=== PATIENT | female | born 1935 | race African-American/Black ===

== ENCOUNTER 2019-08-01 19:32 | Emergency (ER) | payer MEDICARE, MEDICAID ==
[~2019-08-01] VITALS: Ht 162.6 cm; Wt 81.6 kg
[2019-08-01] MEDS ORDERED: Morphine Sulfate 4mg/ml Inj (IV USE ONLY) IVP ONE (20:15)
[2019-08-01] MEDS ORDERED: Omnipaue 350mg/ml 100ml vial INJ PRN ×2 (20:15)
[2019-08-01] MEDS ORDERED: Ketorolac 30mg Inj IV ONE (20:15)
[2019-08-01 20:30] VITALS: BP 183/86
[2019-08-01] MEDS ORDERED: COUMADIN7.5 MG ORAL (20:33)
[2019-08-01] MEDS ORDERED: METOPROLOL SUCC25 MG ORAL (20:33)
[2019-08-01 20:56] LABS: BASOPHILS % (AUTO) 0.5 % (0.0-2.0); EOSINOPHILS % (AUTO) 1.9 % (0.0-3.0); HEMATOCRIT 38.7 % (37.0-47.0); LYMPHOCYTES % (AUTO) 40.4 % (20.0-45.0); MEAN CORPUSCULAR VOLUME 92 FL (80-99); MONOCYTES % (AUTO) 6.4 % (1.0-10.0); NEUTROPHILS % (AUTO) 50.8 % (45.0-75.0); PLATELET COUNT 181 K/UL (150-450); RED BLOOD COUNT 4.19 M/UL (4.20-5.40); WHITE BLOOD COUNT 9.9 K/UL (4.8-10.8)
--- NOTE | 2019-08-01 20:56 | NUR ---
ED Nurse Note: pt presents to ED c/o L arm and shoulder px. pt had a fall two weeks ago and her L arm is currently in a cast but she states that the pain has not improved and now radiates to her shoulder. pt denies any decreased sensation or numbness to the casted extremity. cap refill is <3 seconds. pt denies any urinary symptoms or difficulty breathing. mikeer is at bedside.
[2019-08-01 21:09] LABS: ANION GAP 4 mmol/L (5-15); BLOOD UREA NITROGEN 17 mg/dL (7-18); CARBON DIOXIDE 33 MMOL/L (21-32); CHLORIDE 107 MMOL/L (98-107); CREATININE 1.2 MG/DL (0.55-1.30); POTASSIUM 3.8 MMOL/L (3.5-5.1); SODIUM 144 MMOL/L (136-145)
[2019-08-01] MEDS ORDERED: ATORVASTATIN CA40 MG ORAL (21:12)
[2019-08-01] MEDS ORDERED: ASPIR 8181 MG ORAL (21:12)
[2019-08-01] MEDS ORDERED: LEVOTHYROXINE75 MCG ORAL (21:12)
[2019-08-01] MEDS ORDERED: FUROSEMIDE40 MG ORAL (21:12)
[2019-08-01 21:14] LABS: ALANINE AMINOTRANSFERASE 31 U/L (12-78); ALBUMIN 3.6 G/DL (3.4-5.0); ALBUMIN/GLOBULIN RATIO 0.9 (1.0-2.7); ALKALINE PHOSPHATASE 110 U/L (46-116); ASPARTATE AMINO TRANSFERASE 23 U/L (15-37); BILIRUBIN,TOTAL 0.4 MG/DL (0.2-1.0)
--- NOTE | 2019-08-01 21:57 | Emergency Room Report ---
History of Present Illness General Chief Complaint: Pain Source: Patient, EMS (Aidan Cohn MD) Present Illness HPI 83-year-old female history of left broken wrist, hypertension, diabetes presents with left shoulder pain, that has been ongoing since she has been wearing a cast for 2 and half weeks, aggravated with movement alleviated with rest severity is moderate, intermittent, described as achy, patient also reports epigastric pain states it hurts every now and then has been ongoing for about a day, no aggravating alleviating factors no diarrhea no dysuria no fevers no chills no no dyspnea on exertion does not radiate to the back patient also wants that evaluated. (Aidan Cohn MD) Allergies: Coded Allergies: No Known Allergies (Unverified , 08/01/19) Patient History Past Medical History: see triage record Reviewed Nursing Documentation: PMH: Agreed; PSxH: Agreed (Aidan Cohn MD) Nursing Documentation-PMH Hx Hypertension: Yes Hx Diabetes: Yes (Aidan Cohn MD) Review of Systems All Other Systems: negative except mentioned in HPI (Aidan Cohn MD) Physical Exam Vital Signs Date Time Temp Pulse Resp B/P (MAP) Pulse Ox O2 Delivery O2 Flow Rate FiO2 08/01/19 19:29 99.1 89 18 183/86 (118) 100 Room Air Sp02 EP Interpretation: reviewed, normal General Appearance: well appearing, no apparent distress, alert Head: normocephalic, atraumatic Eyes: bilateral eye PERRL, bilateral eye EOMI ENT: uvula midline, moist mucus membranes Neck: supple, thyroid normal, supple/symm/no masses Respiratory: lungs clear, no respiratory distress, no retraction, no accessory muscle use Cardiovascular #1: normal peripheral pulses, regular rate, rhythm, no edema, no gallop, no murmur Gastrointestinal: non tender, soft, no guarding, no rebound Musculoskeletal: normal inspection, other - Left upper extremity: Cast present , left shoulder tender to palpation, compartments are soft, cap refill less than 3 seconds Neurologic: alert, oriented x3 Psychiatric: mood/affect normal Skin: no rash, warm/dry (Aidan Cohn MD) Procedures Critical Care Time Critical Care Time Given the critical condition in which the patient arrived, the patient was immediately assessed by myself and the nurse, and cardiac monitoring initiated due to the potential for rapid decompensation of the patient's clinical condition. During the course of the patient's stay, I spent a considerable amount of time at the bedside performing serial re-evaluations of the patient's hemodynamic and clinical status because of the recognized potential threat to life or limb in this condition. I then had a chance to review not only all of the available current laboratory and radiographic studies obtained today, but I also reviewed old records available to me at the time. Additionally, any ancillary information available including foam[employer] mixer records were reviewed. Sequential vital signs were obtained. Critical Care time of 75 minutes was performed exclusive of billable procedures. (Aidan Cohn MD) Medical Decision Making Diagnostic Impression: Primary Impression: Left shoulder strain Qualified Codes: S46.912A - Strain of unspecified muscle, fascia and tendon at shoulder and upper arm level, left arm, initial encounter Additional Impressions: Abdominal pain Qualified Codes: R10.13 - Epigastric pain Dissecting aneurysm of thoracic aorta, Franki type B Thoracic aortic aneurysm Qualified Codes: I71.2 - Thoracic aortic aneurysm, without rupture ER Course 83-year-old female presents with vague abdominal pain, patient with a history of aneurysm, possible dissection CT shows type b aortic dissection as well as thoracic aneurysm Patient with an elevated blood pressure, pain control with morphine Patient blood pressure improved from 180s to 120s, no acute intervention with hydralazine and labetalol needed at this point [place] called 11:10pm they are determining whether they will proceed with intervention with the patient Will attempt strict bp control. [place] doctor speaking with vascular will determine whether patient goes to [facility] for further management Laboratory Tests Test 08/01/19 20:47 08/01/19 21:52 White Blood Count 9.9 K/UL (4.8-10.8) Red Blood Count 4.19 M/UL (4.20-5.40) L Hemoglobin 14.0 G/DL (12.0-16.0) Hematocrit 38.7 % (37.0-47.0) Mean Corpuscular Volume 92 FL (80-99) Mean Corpuscular Hemoglobin 33.4 PG (27.0-31.0) H Mean Corpuscular Hemoglobin Concent 36.1 G/DL (32.0-36.0) H Red Cell Distribution Width 11.0 % (11.6-14.8) L Platelet Count 181 K/UL (150-450) Mean Platelet Volume 7.8 FL (6.5-10.1) Neutrophils (%) (Auto) 50.8 % (45.0-75.0) Lymphocytes (%) (Auto) 40.4 % (20.0-45.0) Monocytes (%) (Auto) 6.4 % (1.0-10.0) Eosinophils (%) (Auto) 1.9 % (0.0-3.0) Basophils (%) (Auto) 0.5 % (0.0-2.0) Prothrombin Time 10.7 SEC (9.30-11.50) Prothrombin Time INR 1.0 (0.9-1.1) PTT 23 SEC (23-33) Sodium Level 144 MMOL/L (136-145) Potassium Level 3.8 MMOL/L (3.5-5.1) Chloride Level 107 MMOL/L (98-107) Carbon Dioxide Level 33 MMOL/L (21-32) H Anion Gap 4 mmol/L (5-15) L Blood Urea Nitrogen 17 mg/dL (7-18) Creatinine 1.2 MG/DL (0.55-1.30) Estimate Glomerular Filtration Rate mL/min (>60) Glucose Level 116 MG/DL (74-106) H Calcium Level 9.0 MG/DL (8.5-10.1) Total Bilirubin 0.4 MG/DL (0.2-1.0) Aspartate Amino Transferase (AST) 23 U/L (15-37) Alanine Aminotransferase (ALT) 31 U/L (12-78) Alkaline Phosphatase 110 U/L (46-116) Troponin I 0.023 ng/mL (0.000-0.056) Total Protein 7.6 G/DL (6.4-8.2) Albumin 3.6 G/DL (3.4-5.0) Globulin 4.0 g/dL Albumin/Globulin Ratio 0.9 (1.0-2.7) L Lipase 215 U/L (73-393) Urine Color Pale yellow Urine Appearance Clear Urine pH 7 (4.5-8.0) Urine Specific [place] 1.005 (1.005-1.035) Urine Protein Negative (NEGATIVE) Urine Glucose (UA) Negative (NEGATIVE) Urine Ketones Negative (NEGATIVE) Urine Blood Negative (NEGATIVE) Urine Nitrite Negative (NEGATIVE) Urine Bilirubin Negative (NEGATIVE) Urine Urobilinogen Normal MG/DL (0.0-1.0) Urine Leukocyte Esterase Negative (NEGATIVE) (Aidan Cohn MD) ER Course Please refer to the initial note for the exam and findings and work-up Patient at this time was pending acceptance and transfer to [facility] I did speak to the transferring physician Who reports that after review of the CT imaging from their facility in February and the 1 that we have it appears that there is some consistency And vascular specialty feels that this is likely chronic in nature Patient remains hemodynamically stable And set for transfer for further evaluation (Javon Arechiga DO) EKG Diagnostic Results EKG Time: 20:25 EP Interpretation: NSR, rate 83, QTc 415, no acute ST elevations, normal axis (Aidan Cohn MD) Chest X-Ray Diagnostic Results Chest X-Ray Diagnostic Results : Chest X-Ray Ordered: Yes # of Views/Limited/Complete: 1 View Indication: Other - epigastric pain Interpretation: other - Wide mediastinum Impression: Other - Widened mediastinum Electronically Signed by: Aidan Cohn MD (Aidan Cohn MD) Other X-Ray Diagnostic Results Other X-Ray Diagnostic Results : X-Ray ordered: left shoulder # of Views/Limited Vs Complete: 2 View Indication: Pain EP Interpretation: Yes Interpretation: no fractures Impression: No acute disease Electronically Signed by: Aidan Cohn MD (Aidan Cohn MD) CT/MRI/US Diagnostic Results CT/MRI/US Diagnostic Results : Impression Procedure: CTA Chest Abd/Pel wo/w Cont CT CHEST W/WO Contrast: CT ABDOMEN + PELVIS W/WO Contrast: Type B aortic dissection extending from the distal arch down to the level of the infrarenal abdominal aorta. The descending thoracic aorta is aneurysmal measuring over 5.2 cm. Aneurysmal dilatation at the thoracoabdominal aorta measuring about 5 cm. The false lumen is predominantly thrombosed but with persistent communication between the 2 lumens with contrast opacification. No aneurysm or dissection involving the ascending aorta. Dissection involving the proximal SMA. Thyroid nodules. 2.8 cm conner lesion in the superior mediastinum. Cardiomegaly. Consolidative atelectasis in the left lung base. Colonic diverticula. Duodenal diverticulum. Severe atrophy of the left kidney. Fat-containing ventral hernia. Spondylolysis at L5 with grade 1 spondylolisthesis L5-S1. <MYCVCSECTION> Communications: 08/01/19 22:32 Call Doctor Regarding Other, called Dr. Austin on 08/01 22:32 (-08:00) Dictated By: Zakia Baltazar MD Electronically Signed By: Signed Date/Time CC: (Aidan Cohn MD) Last Vital Signs Date Time Temp Pulse Resp B/P (MAP) Pulse Ox O2 Delivery O2 Flow Rate FiO2 08/01/19 21:17 99.1 08/01/19 20:30 89 18 183/86 100 Room Air (Aidan Cohn MD) Status: improved (Javon Arechiga DO) [facility] Condition: Critical Aidan Cohn MD Aug 01, 2019 21:57 Javon Arechiga DO Aug 02, 2019 03:05
[2019-08-01 22:09] LABS: APPEARANCE,URINE CLEAR; BILIRUBIN, URINE NEGATIVE (NEGATIVE); COLOR,URINE PALE YELLOW; GLUCOSE, URINE (UA) NEGATIVE (NEGATIVE); KETONES,URINE NEGATIVE (NEGATIVE); LEUKOCYTE ESTERASE ,URINE NEGATIVE (NEGATIVE); NITRITE,URINE NEGATIVE (NEGATIVE); PH,URINE 7 (4.5-8.0); PROTEIN,URINE NEGATIVE (NEGATIVE); UROBILINOGEN,URINE NORMAL MG/DL (0.0-1.0)
[2019-08-01] MEDS ORDERED: Labetalol 5mg/ml 20ml vial IV ONE (22:15)
--- NOTE | 2019-08-01 22:15 | NUR ---
ED Nurse Note: pt's BP is 127/72 and HR is 88. per ERMD, he wants to hold labetolol and hydralazine. medications were not given per ERMD
--- NOTE | 2019-08-01 22:27 | Diagnostic Imaging Report ---
CLINICAL INDICATION:Pain, status post fall, history of aortic aneurysm TECHNIQUE: IV administration nonionic contrast. Arterial phase spiral acquisitions obtained through the chest, abdomen, and pelvis. Multiplanar and 3-D reconstructions were generated. Total dose length product 1963 mGycm. CTDIvol(s) 41, 60, 138, 29 mGy. Radiation dose was minimized using automated exposure control COMPARISON: none FINDINGS Vascular: There is a Franki type B thoracic aortic dissection, beginning at the level of the distal aortic arch. The false lumen is mostly thrombosed, although a thin stream of contrast (through the center of the thrombus beginning at the level of the proximal to mid thoracic aorta and terminating at the superior mesenteric artery. The false lumen is largely located left lateral lateral to the descending thoracic aorta and does not significantly narrow the lumen of most of the descending aorta. However, just above the aortic hiatus, the false lumen wraps around anteriorly and there is a component of thrombosed false lumen on the right side of the aorta. This results in mild and probably not significant narrowing of the aortic lumen. The dissection results in dilatation of the descending thoracic aorta, which measures 5.8 cm transverse by 4.9 cm AP in the proximal descending aorta and approximately 5.2 cm transverse by 5.2 cm AP at the level of the celiac axis origin. There is no evidence of leakage or rupture. The celiac axis comes off of the true lumen and appears unremarkable. The dissection flap extends approximately 2 cm into the superior mesenteric artery, but the superior mesenteric artery is essentially fed by the true lumen. There is some narrowing, probably not significant, of the true lumen by the dissection flap. The right renal artery comes off of the true lumen, is patent and nonstenotic. The left renal artery comes off of the thrombosed portion of the false lumen, is itself thrombosed, and the left kidney is severely atrophic, measuring only 3.2 cm in length. The dissection flap ends in the infrarenal abdominal aorta well above the aortic bifurcation, and both iliac arteries come off of the true lumen and there is no significant compromise of these vessels. The ascending thoracic aorta is only minimally ectatic, measuring up to 3.7 cm diameter. The heart is borderline enlarged. The right main pulmonary artery is dilated, measuring 3 cm transverse diameter. The left main pulmonary artery measures 2.9 cm diameter. Chest: The lungs demonstrate minimal subpleural opacity, likely atelectasis, in the posterior right upper lobe. There is compressive atelectasis of the medial left lower lobe, compressed predominantly by the enlarged aorta and to lesser extent the enlarged heart. The left upper lobe is clear. No infiltrates, effusions, masses, or nodules are demonstrated. No pericardial effusion. There is a right paratracheal mass or adenopathy which measures 3.5 x 3 cm, demonstrates some enhancement and some heterogeneous central low attenuation. There are low-attenuation masses adjacent to or coming off of the right thyroid lobe and isthmus, measuring up to 2.2 cm in diameter. A left paratracheal node with peripheral enhancement and central lower attenuation is also demonstrated, measuring 19 mm long axis dimension. No axillary or chest wall mass or adenopathy. Abdomen pelvis: There is fairly extensive colonic diverticulosis. No evidence of diverticulitis. The cecum is somewhat distended with gas, although no downstream obstructive pathology is evident. The appendix is not definitely demonstrated, but no findings to suggest acute appendicitis are evident. No bowel distention. No free or loculated intraperitoneal gas or fluid. There is a broad-based ventral hernia which contains only fat. The stomach is unremarkable. There is a large duodenal diverticulum incidentally noted. The liver, gallbladder, bile ducts pancreas, spleen are unremarkable. The adrenals are hypertrophic bilaterally without discrete mass. The right kidney is unremarkable. Left kidney is atrophic as previously mentioned. The bladder is distended. The uterus and adnexal structures are unremarkable. No pelvic mass or adenopathy. No retroperitoneal or mesenteric mass or adenopathy The bones demonstrate bilateral L5 spondylolysis, L5 on S1 spondylolisthesis and secondary degenerative change. 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 The descending thoracic and proximal abdominal aorta are also aneurysmal, as detailed above. 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 The CT scanner at [facility] is accredited by the [employer] and the scans are performed using protocols designed to limit radiation exposure to as low as reasonably achievable to attain images of sufficient resolution adequate for diagnostic evaluation.
[2019-08-01 23:00] VITALS: BP 150/85
[2019-08-02 01:00] VITALS: BP 155/85
--- NOTE | 2019-08-02 02:27 | NUR ---
ED Nurse Note: Called and gave report to SHANTANU Ibarra at [facility]
[2019-08-02 03:30] VITALS: BP 155/85
--- NOTE | 2019-08-02 03:37 | NUR ---
ED Nurse Note: pt transported to [facility] via [facility]
--- NOTE | 2019-08-02 13:44 | Cardiology Report ---
APPROVED REPORT EKG Measurement Heart [id number] Normal sinus rhythm Non-spec ST abn Abnormal ECG
--- NOTE | 2019-08-02 14:15 | Diagnostic Imaging Report ---
Indication: Shortness of breath Technique: One view of the chest Comparison: none Findings: There is mild central bronchial wall thickening. The lungs and pleural spaces are clear otherwise. The heart is enlarged. The aorta is tortuous and clips dilated Impression: Cardiomegaly Ectatic thoracic aorta-please refer to separate CT angiogram report for details
--- NOTE | 2019-08-02 17:32 | Diagnostic Imaging Report ---
Indication: Left shoulder pain Technique: 2 views of the left shoulder . Unable to position for external rotation view due to the presence of a sling. Comparison: none Findings: Exam is limited due to the availability of only 2 views, overlap of the humeral head and glenoid fossa. Bones are osteoporotic. No definite acute fractures. No dislocations. Impression: Limited. No definite acute bony trauma
== END 2019-08-02 03:30 | disposition short-term general hospital (02) ==
LOC: EDBD 19:32 → EMR 22:41
DX: S46.912A Strain of unspecified muscle, fascia and tendon at shoulder and upper arm level, left arm, initial encounter (principal); R10.13 Epigastric pain; I71.2 Thoracic aortic aneurysm, without rupture; I10 Essential (primary) hypertension; E11.9 Type 2 diabetes mellitus without complications; S62.102D Fracture of unspecified carpal bone, left wrist, subsequent encounter for fracture with routine healing; X58.XXXA Exposure to other specified factors, initial encounter; Y93.9 Activity, unspecified; Y92.9 Unspecified place or not applicable; X58.XXXD Exposure to other specified factors, subsequent encounter
CPT/HCPCS: 36415; 71045; 71275; 73020; 74174; 80053; 81003; 83690; 84484; 85025; 85610; 85730; 93005; 96361; 96374; 96375; 99291; 99292; J0360; J1885; J2270; J2405; J7030; Q9967